=== PATIENT | male | born 1990 | race Caucasian/White ===

== ENCOUNTER 2019-11-13 14:59 | Emergency (ER) | payer OTHER ==
--- NOTE | 2020-01-05 15:35 | ECGEPIP ---
SINUS RHYTHM MOD. IVCD NONSPECIFIC ST & T-WAVE CHANGES SEE SCANNED DOWNTIME REPORT MTDD
== END 2019-11-13 17:43 | disposition home or self-care (01) ==
LOC: M ED 14:59
DX: Z11.59 Encounter for screening for other viral diseases (principal); R50.9 Fever, unspecified; Z20.828 Contact with and (suspected) exposure to other viral communicable diseases; F17.200 Nicotine dependence, unspecified, uncomplicated